=== PATIENT | female | born 1955 | race Native Hawaiian/Other Pacific Islander ===

== ENCOUNTER 2021-07-13 09:06 | Outpatient (CLI) | payer OTHER | END 2021-07-13 19:35 | disposition home or self-care (01) | LOC: MAMMO 09:06 | PROVIDERS: ATTEND Nurse Practitioner Family | DX: Z12.31 Encounter for screening mammogram for malignant neoplasm of breast (principal) ==

== ENCOUNTER 2023-08-13 09:05 | Outpatient (CLI) | payer OTHER | END 2023-08-13 20:44 | disposition home or self-care (01) | LOC: RAD 09:05 | PROVIDERS: ATTEND Nurse Practitioner Family | DX: M54.40 Lumbago with sciatica, unspecified side (principal) ==

== ENCOUNTER 2023-08-27 10:16 | Outpatient (CLI) | payer OTHER | END 2023-08-27 20:09 | disposition home or self-care (01) | LOC: RAD 10:16 | PROVIDERS: ATTEND Nurse Practitioner Family | DX: M79.672 Pain in left foot (principal) ==

== ENCOUNTER 2023-08-29 09:13 | Outpatient (CLI) | payer OTHER | END 2023-08-29 19:08 | disposition home or self-care (01) | LOC: MRI 09:13 | PROVIDERS: ATTEND Nurse Practitioner Family | DX: M47.27 Other spondylosis with radiculopathy, lumbosacral region (principal) ==